=== PATIENT | female | born 2005 | race Two or more races ===

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

== ENCOUNTER 2024-04-25 14:09 | Emergency (ER) | payer MEDICAID, OTHER ==
[~2024-04-25] VITALS: Ht 160 cm; Wt 54.0 kg
[2024-04-25 14:23] VITALS: BP 123/83; PULSE 75; RESP 18; TEMP 97.8; O2SAT 99
[2024-04-25 16:04] LABS: CLARITY URINE CLEAR (CLEAR); COLOR URINE YELLOW (YELLOW); GLUCOSE URINE NEGATIVE (NEGATIVE); KETONES URINE 1+ (NEGATIVE); LEUKOCYTE ESTERASE URINE NEGATIVE (NEGATIVE); NITRITE URINE NEGATIVE (NEGATIVE); OCCULT BLOOD URINE NEGATIVE (NEGATIVE); PH URINE 5.5 (4.5-8.0); PROTEIN URINE TRACE (NEGATIVE); SPECIFIC GRAVITY URINE 1.031 (1.005-1.030)
[2024-04-25 16:25] LABS: BACTERIA URINE NONE SEEN; RBC URINE NONE SEEN /hpf (0-2); SQUAMOUS EPITHELIAL CELL URINE RARE /lpf (RARE/1+); WBC URINE NONE SEEN /hpf (0-2)
[2024-04-25] MEDS: LIDOCAINE HCL/PF 1% 10 MG/ML 5ML VIAL INFIL ONE (17:50)
[2024-04-25] MEDS: AZITHROMYCIN 500 MG TABLET PO ONE (17:50)
[2024-04-25] MEDS: CEFTRIAXONE SODIUM 500MG VIAL IM ONE (17:50)
== END 2024-04-25 18:09 | disposition home or self-care (01) ==
LOC: ER 14:09
DX: Z11.3 Encounter for screening for infections with a predominantly sexual mode of transmission (principal)
CPT/HCPCS: 87491; 87591; 81003; 81025; 86592; 96372; 99283; J0696; J3490; Z7610

== ENCOUNTER 2024-09-02 19:09 | Emergency (ER) | payer OTHER ==
[~2024-09-02] VITALS: Ht 160 cm; Wt 52.2 kg
[2024-09-02 19:33] VITALS: BP 103/68; PULSE 78; RESP 18; TEMP 98.3; O2SAT 98
[2024-09-02] MEDS ORDERED: LIDOCAINE HCL 1% 20ML VIAL INFIL ONE (21:00)
[2024-09-02] MEDS: CEFTRIAXONE SODIUM 1G VIAL IM ONE (21:00)
[2024-09-02] MEDS: AZITHROMYCIN 500 MG TABLET PO ONE (21:00)
[2024-09-02 21:59] LABS: CLARITY URINE CLEAR (CLEAR); COLOR URINE YELLOW (YELLOW); GLUCOSE URINE NEGATIVE (NEGATIVE); KETONES URINE TRACE (NEGATIVE); LEUKOCYTE ESTERASE URINE TRACE (NEGATIVE); NITRITE URINE NEGATIVE (NEGATIVE); OCCULT BLOOD URINE 3+ (NEGATIVE); PROTEIN URINE 1+ (NEGATIVE); SPECIFIC GRAVITY URINE 1.027 (1.005-1.030)
[2024-09-02 22:24] LABS: BACTERIA URINE TRACE; SQUAMOUS EPITHELIAL CELL URINE 2+ /lpf (RARE/1+)
== END 2024-09-02 22:19 | disposition home or self-care (01) ==
LOC: ER 19:09
DX: R10.2 Pelvic and perineal pain (principal)
CPT/HCPCS: 99283; 81003; 96372; J0696; J3490

== ENCOUNTER 2024-10-02 05:54 | Emergency (ER) | payer OTHER ==
[~2024-10-02] VITALS: Ht 162.6 cm; Wt 50.0 kg
[2024-10-02 06:00] VITALS: O2SAT 100
[2024-10-02] MEDS: MORPHINE SULFATE 4 MG/ML INJ (FOR IV/IM USE) IV ONE (07:21)
[2024-10-02] MEDS: ONDANSETRON HCL 4MG/2ML INJ IV ONE (07:22)
[2024-10-02 07:44] LABS: BASOPHILS % 0.7 % (0.0-2.0); DIFFERENTIAL COMMENT 0; EOSINOPHILS % 1.5 % (0.0-5.0); HEMATOCRIT. 38.1 % (36.0-48.0); LYMPHOCYTES % 24.6 % (20.0-50.0); MEAN CORPUSCULAR HEMOGLOBIN 22.2 pg (28.0-32.0); MEAN CORPUSCULAR HGB CONC 31.4 g/dL (31.0-37.0); MEAN CORPUSCULAR VOLUME 70.6 fL (81.0-99.0); MEAN PLATELET VOLUME 8.6 fl (7.4-10.4); MONOCYTES % 5.7 % (2.0-8.0); NEUTROPHILS % 67.5 % (40.0-76.0); PLATELET 238 x1000/uL (130-400); RED CELL DISTRIBUTION WIDTH 14.9 % (11.6-14.6); WHITE BLOOD COUNT 5.8 x1000/uL (4.5-11.0)
[2024-10-02 07:49] LABS: CHLORIDE 108 mEq/L (98-107); POTASSIUM 3.7 mEq/L (3.5-5.1); SODIUM 141 mEq/L (136-145)
[2024-10-02 07:50] LABS: CARBON DIOXIDE 27 mEq/L (21-32)
[2024-10-02 07:51] LABS: CALCIUM 9.4 mg/dL (8.7-10.4)
[2024-10-02 07:54] LABS: INR 1.1; PROTHROMBIN TIME 12.1 sec (9.6-11.0)
[2024-10-02 07:55] LABS: CREATININE 0.8 mg/dL (0.6-1.0); GLUCOSE 95 mg/dL (70-105); UREA NITROGEN BLOOD 8 mg/dL (9-23)
[2024-10-02 10:05] LABS: CLARITY URINE CLEAR (CLEAR); COLOR URINE YELLOW (YELLOW); GLUCOSE URINE NEGATIVE (NEGATIVE); KETONES URINE 1+ (NEGATIVE); LEUKOCYTE ESTERASE URINE NEGATIVE (NEGATIVE); NITRITE URINE NEGATIVE (NEGATIVE); OCCULT BLOOD URINE NEGATIVE (NEGATIVE); PH URINE 6.5 (4.5-8.0); PROTEIN URINE NEGATIVE (NEGATIVE); SPECIFIC GRAVITY URINE 1.025 (1.005-1.030)
[2024-10-02] MEDS: KETOROLAC 15MG/ML VIAL IV ONE ×2 (10:16→11:48)
[2024-10-02 13:31] VITALS: BP 123/67; PULSE 75; RESP 17; TEMP 36.55848; O2SAT 98
== END 2024-10-02 13:38 | disposition home or self-care (01) ==
LOC: ER 05:54
DX: R10.2 Pelvic and perineal pain (principal)
CPT/HCPCS: 80048; 81003; 81025; 83690; 85025; 85610; 36415; 74018; 76830; 76856; 96374; 96375; 96376; 99285; J1885; J2405; J2270; Z7610

== ENCOUNTER 2024-11-26 18:45 | Emergency (ER) | payer OTHER ==
[~2024-11-26] VITALS: Ht 160 cm; Wt 56.0 kg
[2024-11-26 18:49] VITALS: TEMP 37; O2SAT 100
[2024-11-26] MEDS ORDERED: IBUP-2029 MT (21:21)
[2024-11-26 21:30] VITALS: BP 126/58; PULSE 86; RESP 16
[2024-11-26] MEDS: IBUPROFEN 600MG TABLET PO ONE (21:30)
[2024-11-26] MEDS ORDERED: CYCL5TAB3 MT (21:43)
== END 2024-11-26 21:57 | disposition home or self-care (01) ==
LOC: ER 18:45
DX: S40.011A Contusion of right shoulder, initial encounter (principal); M54.50 Low back pain, unspecified; M54.2 Cervicalgia; V49.9XXA Car occupant (driver) (passenger) injured in unspecified traffic accident, initial encounter; Y93.89 Activity, other specified; Y92.89 Other specified places as the place of occurrence of the external cause; Y99.8 Other external cause status
CPT/HCPCS: 73030; 99283; A4565